=== PATIENT | male | born 1990 | race African-American/Black ===

== ENCOUNTER 2016-05-28 11:11 | Emergency (ER) | payer OTHER ==
[2016-05-28 11:40] VITALS: BP 129/76; BMI 24.0
--- NOTE | 2016-05-28 12:43 | PDOC ---
History of Present Illness - General Chief Complaint: Respiratory Stated Complaint: COUGH, MUCOUS Time Seen by Provider: 05/28/16 12:35 History Source: Care Provider - History of Present Illness Initial Comments: CHIEF COMPLAINT: 25 y/o afebrile male [facility] resident with H MR, anoxic brain injury, ADHD, aggression, s/p g-tube placement BIB facility specialist for cough, congestion and temp higher than normal. HISTORY OF PRESENT ILLNESS: Worker states the patient usually maintains a temperature of 95 degrees but today he had over 98 degrees, along with congested and productive cough of yellow/green sputum. The patient has been seen here in the past for pneumonia. Pt is nonverbal at baseline and history provided by industrial services worker and old records. Vital signs on arrival are notable for pulse of 101 with O2 sat of 94% on RA. REVIEW OF SYSTEMS: Unable to obtain from patient PHYSICAL EXAM: GENERAL: The patient is awake, alert, and fully oriented, in no acute distress. HEAD: Normal with no signs of trauma. ENT: Pupils equal, round and reactive to light, extraocular movements intact, sclera anicteric, conjunctiva clear. Neck supple. LUNGS: Rhonchi right base. Congested, moist cough. No accessory muscle use. CV: RRR, S1/S2, no MRG. Cap refill < 2 sec. ABDOMEN: Soft, non-distended, non-tender even to deep palpation, no hepatomegaly or splenomegaly, no masses. EXTREMITIES: Contracted upper extremities. NEUROLOGICAL: Non verbal SKIN: Warm, dry, normal turgor, no rashes or lesions noted. Past History - Past Medical History Allergies/Adverse Reactions: Allergies Allergy/AdvReac Type Severity Reaction Status Date / Time No Known Allergies Allergy Verified 05/28/16 11:35 Home Medications: Ambulatory Orders Baclofen 10 mg GT QID 11/29/13 Benztropine Mesylate [Cogentin -] 1 mg GT BID 11/29/13 Clonidine HCl [Catapres -] 0.3 mg GT TID 11/29/13 Senna Oral Solution - [Senokot Oral Solution -] 10 ml GT DAILY 11/29/13 Ibuprofen [Motrin -] 400 mg GT PRN PRN 06/21/14 Loperamide HCl [Loperamide] 2 mg PO Q8H PRN 06/21/14 Multivitamins [Multivit ([facility] Formulary)] 1 tab GT DAILY 06/21/14 Nystatin Oral Suspension - [Nystatin Oral Susp 594735 Units/5 ML -] 2 ml PO TID 06/21/14 Simethicone 0.6 ml GT BID 12/06/14 Esomeprazole Mag Trihydrate [Nexium] 40 mg GT DAILY 03/24/15 Ketotifen Fumarate 1 drop OP BID 03/24/15 Mometasone Furoate [Nasonex] 1 - 2 inh NS BID 03/24/15 Saccharomyces Boulardii [Florastor Kids] 250 mg GT BID 03/24/15 Pseudoephedrine HCl [Sudafed -] 5 ml GT TID 06/08/15 Guaifenesin [Robitussin -] 10 ml GT Q6H #1 bottle 01/23/16 Chlorpromazine [Thorazine -] 100 mg PO QID tablet 02/02/16 Petrolatum - White [Vaseline -] 1 applic TP DAILY applic 02/02/16 Azithromycin [Zithromax Tri-Zach (3 DAYS) -] 500 mg PO DAILY #3 tablet 03/31/16 Levofloxacin [Levaquin] 750 mg PO DAILY #5 tab 03/31/16 Loratadine 10 mg GT DAILY 03/31/16 Loratadine [Claritin -] 10 mg GT DAILY 03/31/16 Levofloxacin [Levaquin] 750 mg GT DAILY #7 tab 05/28/16 CVA: (HYPOXIC ENCEPHALOPATHY) GI Disorders: (gerd,hiatal hernia, last G-tube replacement 07/01/13) Psychiatric Problems: Yes (MR,ADHD) Suicide Attempt (Hx): No - Surgical History Abdominal Surgery: (diaphramatic hernia repair,g-tube) GI Surgery: Yes (PEG TUBE REPLACED 07/01/13) - Immunization History TDAP Vaccination: No Immunization Up to Date: Yes - Psycho/Social/Smoking Cessation Hx Anxiety: No Suicidal Ideation: No Smoking History: Never smoked Have you smoked in the past 12 months: No Number of Cigarettes Smoked Daily: 0 Information on smoking cessation initiated: No Hx Alcohol Use: No Drug/Substance Use Hx: No Substance Use Type: None Hx Substance Use Treatment: No *Physical Exam - Vital Signs Last Vital Signs Temp Pulse Resp BP Pulse Ox 101 H 20 129/76 94 L 05/28/16 11:36 05/28/16 11:36 05/28/16 11:36 05/28/16 11:36 Medical Decision Making - Medical Decision Making A/P: 26 y/o male with higher than usual temperature for him, BIB industrial services worker at [facility] for temp and congested sounding cough. Suspect pneumonia. Plan is as follows: 1. Labs 2. IV fluids 3. Duoneb 4. CXR 5. Influenza Pt being very combative and uncooperative. Will give IM ativan and attempt line and labs again. the nurses attempted 4 different access points for line and labs and could never get a line. Will do CXR and determine course of treatment from there. CXR IMPRESSION: Patchy consolidation/atelectasis in the left lower lobe region is again noted. There is some increased density in the right perihilar region suspicious for infiltrate. No definite pleural effusion is seen. Will give first dose of Levaquin via Gtube in the ER. Will discharge back to assisted living with 7 day course of levaquin. Instructed the care provider to make sure he gets his entire course of levaquin, plenty of fluids and tylenol if needed for fever. Instructed her to return to the ER with any worsening or concerning symptoms. The patient's care provider verbalizes understanding of all instructions, has no further questions and is awaiting discharge. *DC/Admit/Observation/Transfer Diagnosis at time of Disposition: Hospital acquired PNA - Discharge Dispostion Disposition: HOME Condition at time of disposition: Improved - Prescriptions Prescriptions: Levofloxacin [Levaquin] 750 mg GT DAILY #7 tab - Referrals Referrals: Corbin Espinoza MD [Primary Care Provider] - Call tomorrow - Patient Instructions Printed Discharge Instructions: DI for Pneumonia -- Adult Additional Instructions: Discharge Instructions: -Give entire 7 day course of Levaquin -GIve plenty of fluids -Give tylenol for fever if needed -Follow up with patient's doctor this week -Return to the ER with any worsening or concerning symptoms
[2016-05-28] MEDS ORDERED: ALBUTEROL SO4 2.5/IPRATROPIUM 0.5 INH SOL 3 ML VIAL.NEB. NEB ONE ×2 (12:46→14:02)
[2016-05-28] MEDS ORDERED: SODIUM CHLORIDE 1,000 ML IV STA (12:46)
[2016-05-28] MEDS ORDERED: LORAZEPAM CARPU-JECT 2 MG/ML DISP.SYRIN IM ONE (13:27)
[2016-05-28] MEDS ORDERED: LEVOFLOXACIN 750 MG TABLET PO SCH (16:30)
[2016-05-28 17:10] VITALS: PULSE 85; TEMP 98
== END 2016-05-28 16:50 | disposition home or self-care (01) ==
LOC: JER 11:11
PROC: 3E0F7GC Introduction of Other Therapeutic Substance into Respiratory Tract, Via Natural or Artificial Opening (ICD-10-PCS; principal; 2016-05-28)
PROC: 3E033NZ Introduction of Analgesics, Hypnotics, Sedatives into Peripheral Vein, Percutaneous Approach (ICD-10-PCS; 2016-05-28)
DX: J18.9 Pneumonia, unspecified organism (principal); F90.2 Attention-deficit hyperactivity disorder, combined type; F78 Other intellectual disabilities; F91.1 Conduct disorder, childhood-onset type; G93.1 Anoxic brain damage, not elsewhere classified; Z93.1 Gastrostomy status
CPT/HCPCS: 71010-TC; 71020-TC; 87804; 94640; 96374; 99283-25

== ENCOUNTER 2016-12-13 11:00 | Inpatient (IN) | payer OTHER ==
--- NOTE | 2016-12-13 12:15 | PDOC ---
History of Present Illness - General Chief Complaint: Shortness of Breath Stated Complaint: CONGESTED, SOB Time Seen by Provider: 12/13/16 11:23 History Source: Patient - History of Present Illness Timing/Duration: reports: other Associated Symptoms: reports: cough, nasal congestion, nasal drainage. denies: fever/chills, wheezing Past History - Past Medical History Allergies/Adverse Reactions: Allergies Allergy/AdvReac Type Severity Reaction Status Date / Time No Known Allergies Allergy Verified 12/13/16 11:04 Home Medications: Ambulatory Orders Baclofen 10 mg GT QID 11/29/13 Benztropine Mesylate [Cogentin -] 1 mg GT BID 11/29/13 Clonidine HCl [Catapres -] 0.3 mg GT TID 11/29/13 Senna Oral Solution - [Senokot Oral Solution -] 10 ml GT DAILY 11/29/13 Loperamide HCl [Loperamide] 2 mg PO Q8H PRN 06/21/14 Multivitamins [Multivit ([facility] Formulary)] 1 tab GT DAILY 06/21/14 Nystatin Oral Suspension - [Nystatin Oral Susp 838324 Units/5 ML -] 2 ml PO TID 06/21/14 Simethicone 0.6 ml GT BID 12/06/14 Esomeprazole Mag Trihydrate [Nexium] 20 mg GT DAILY 03/24/15 Mometasone Furoate [Nasonex] 1 - 2 inh NS BID 03/24/15 Saccharomyces Boulardii [Florastor Kids] 250 mg GT BID 03/24/15 Loratadine 10 mg GT DAILY 03/31/16 Acetaminophen [Tylenol] 650 mg PO Q4HWA PRN 12/13/16 Albuterol Sulfate [Proair Respiclick] 2 puff IH ASDIR 12/13/16 Chlorpromazine [Thorazine -] 100 mg PO BID 12/13/16 Fluticasone Propionate [Flovent Diskus] 44 mcg IH BID 12/13/16 Olopatadine HCl [Pataday] 2.5 ml OP DAILY 12/13/16 Polyethylene Glycol 3350 [Miralax (For Bowel Prep) -] 17 gm GT DAILY 12/13/16 CVA: (HYPOXIC ENCEPHALOPATHY) GI Disorders: (gerd,hiatal hernia, last G-tube replacement 07/01/13) Psychiatric Problems: Yes (MR,ADHD) Suicide Attempt (Hx): No - Surgical History Abdominal Surgery: (diaphramatic hernia repair,g-tube) GI Surgery: Yes (PEG TUBE REPLACED 07/01/13) - Immunization History TDAP Vaccination: No Immunization Up to Date: Yes - Psycho/Social/Smoking Cessation Hx Anxiety: No Suicidal Ideation: No Smoking History: Never smoked Have you smoked in the past 12 months: No Number of Cigarettes Smoked Daily: 0 Hx Alcohol Use: No Drug/Substance Use Hx: No Substance Use Type: None Hx Substance Use Treatment: No Review of Systems - Review of Systems Able to Perform ROS?: No (hx per educational institution president) Constitutional: No: Fever HEENTM: Yes: Nose Congestion Respiratory: Yes: Cough. No: Wheezing *Physical Exam - Vital Signs Last Vital Signs Temp Pulse Resp BP Pulse Ox 98.0 F 102 H 32 H 105/65 95 12/13/16 11:04 12/13/16 11:04 12/13/16 11:04 12/13/16 11:04 12/13/16 11:04 - Physical Exam General Appearance: Yes: Appropriately Dressed. No: Apparent Distress HEENT: positive: Normal Voice, Rhinorrhea. negative: Scleral Icterus (R), Scleral Icterus (L) Neck: positive: Supple Respiratory/Chest: positive: Lungs Clear, Normal Breath Sounds, Rhonchi. negative: Respiratory Distress Cardiovascular: positive: S1, S2, Tachycardia Gastrointestinal/Abdominal: positive: Soft Integumentary: positive: Dry, Warm Neurologic: positive: Alert ED Treatment Course - LABORATORY CBC & Chemistry Diagram: 12/13/16 12:24 12/13/16 12:24 - RADIOLOGY Radiology Studies Ordered: Category Date Time Status CHEST PA & LAT [RAD] Stat Radiology 12/13/16 11:37 Ordered Medical Decision Making - Medical Decision Making 12/13/16 12:12 26 yo M, h/o MR, autism, PEG tube, recurrent PNA, sent from [facility] for cough w/ rhinorrhea and congestion x 4 days. Possible sob. No fever. Pt unable to give hx See exam URI R/o PNA given hx Mild tachycardia in ED w/ RR of 32 at triage though not visibly tachypneic or sob in ED, + copious yellowish rhinorrhea w/ rhonchorus lungs -labs -CXR 12/13/16 12:14 12/13/16 12:15 12/13/16 13:47 Multilobar infiltrates on CXR. Labs wnl. Bld cx pending. Will tx and admit to Dr Gallagher as d/w . 12/13/16 13:52 12/13/16 13:59 *DC/Admit/Observation/Transfer Diagnosis at time of Disposition: Pneumonia Qualifiers: Pneumonia type: due to unspecified organism Laterality: bilateral Lung location : unspecified part of lung Qualified Code(s): J18.9 - Pneumonia, unspecified organism - Discharge Dispostion Condition at time of disposition: Fair Admit: Yes - Referrals Referrals: Ty Rodriguez MD [Primary Care Provider] -
[2016-12-13 12:32] LABS: BASOPHIL 0.4 % (0-2.0); EOSINOPHIL 2.7 % (0-4.5); MCH 28.6 pg (25.7-33.7); MCHC 33.1 g/dl (32.0-35.9); MEAN CELL VOLUME 86.5 fl (80-96); MEAN PLT VOLUME 11.6 fl (7.5-11.1); NEUTROPHILS 72.6 % (42.8-82.8); PLATELET COUNT 153 K/MM3 (134-434); RDW 13.9 % (11.9-15.9); WHITE BLOOD COUNT 9.3 K/mm3 (4.0-10.0)
[2016-12-13 12:57] LABS: ALK PHOS 72 U/L (45-117); ANION GAP 6 (8-16); BILIRUBIN,TOTAL 0.4 mg/dL (0.2-1.0); CALCIUM 9.9 mg/dL (8.5-10.1); CO2 28 mmol/L (21-32); CREATININE 0.9 mg/dL (0.7-1.3); GLUCOSE,RANDOM 104 mg/dL (74-106); SGPT/ALT 38 U/L (12-78); TOT PROT 8.6 g/dl (6.4-8.2)
[2016-12-13 12:58] LABS: SGOT/AST 28 U/L (15-37)
[2016-12-13] MEDS ORDERED: AZITHROMYCIN IVPB 500 MG in DEXTROSE 5%-WATER - 250 ML IVPB ONE (13:45)
[2016-12-13] MEDS ORDERED: CEFEPIME HCL 2 GM VIAL (RESTRICTED TO ID) IVPB ONE (13:45)
[2016-12-13] MEDS ORDERED: VANCOMYCIN 1,000 MG in DEXTROSE 5%-WATER - 250 ML IVPB ONE (13:45)
[2016-12-13] MEDS ORDERED: SODIUM CHLORIDE 1,000 ML IV STA (13:46)
--- NOTE | 2016-12-13 15:27 | PDOC ---
*Physical Exam - Vital Signs Last Vital Signs Temp Pulse Resp BP Pulse Ox 98.0 F 102 H 32 H 105/65 95 12/13/16 11:04 12/13/16 11:04 12/13/16 11:04 12/13/16 11:04 12/13/16 11:04 ED Treatment Course - LABORATORY CBC & Chemistry Diagram: 12/13/16 12:24 12/13/16 12:24 - ADDITIONAL ORDERS Additional order review: Laboratory Results 12/13/16 12:24 Sodium 136 Potassium 4.7 Chloride 102 Carbon Dioxide 28 Anion Gap 6 L BUN 14 Creatinine 0.9 Creat Clearance w eGFR > 60 Random Glucose 104 Calcium 9.9 Total Bilirubin 0.4 D AST 28 D ALT 38 D Alkaline Phosphatase 72 Total Protein 8.6 H Albumin 4.0 12/13/16 12:24 RBC 5.23 MCV 86.5 MCHC 33.1 RDW 13.9 MPV 11.6 H Neutrophils % 72.6 Lymphocytes % 12.1 D Monocytes % 12.2 H Eosinophils % 2.7 Basophils % 0.4 - Medications Given in the ED: ED Medications Discontinued Medications Generic Name Dose Route Start Last Admin Trade Name Freq PRN Reason Stop Dose Admin Lorazepam 1 mg 12/13/16 13:59 12/13/16 14:05 Ativan Injection - IM 12/13/16 14:00 1 mg ONCE ONE Administration Medical Decision Making - Medical Decision Making 12/13/16 15:26 Patient seen and examined with MASHA Huffman. Agree with history, assessment, and plan. *DC/Admit/Observation/Transfer Diagnosis at time of Disposition: Pneumonia Qualifiers: Pneumonia type: due to unspecified organism Laterality: bilateral Lung location : unspecified part of lung Qualified Code(s): J18.9 - Pneumonia, unspecified organism - Discharge Dispostion Condition at time of disposition: Fair
[2016-12-13] MEDS ORDERED: MIDAZOLAM HCL 2 MG/2 ML SINGLE DOSE VIAL IM ONE (16:19)
[2016-12-13 17:25] VITALS: BMI 26.0
[2016-12-13] MEDS ORDERED: DEXTROSE 5%-0.45% SALINE 1,000 ML IV SCH (20:15)
[2016-12-13] MEDS ORDERED: chlorproMAZINE HCL 25 MG TABLET NR SCH (22:00)
[2016-12-13] MEDS: cloNIDine HCL 0.1 MG TABLET GT SCH (23:15)
[2016-12-13] MEDS: LACTOBACILLUS ACIDOPHILUS 1 EACH TAB (FP) GT SCH (23:15)
[2016-12-13] MEDS: BENZTROPINE MESYLATE 1 MG TABLET (FP) GT SCH (23:15)
[2016-12-13] MEDS: BACLOFEN 10 MG TABLET (FP) GT SCH (23:15)
[2016-12-13] MEDS: HEPARIN NA (PORCINE) 5,000 UNITS/ML 1ML VIAL SQ SCH (23:16)
[2016-12-13] MEDS: SIMETHICONE 40 MG/0.6 ML BOTTLE GT SCH (23:16)
[2016-12-14] MEDS: cloNIDine HCL 0.1 MG TABLET GT SCH ×3 (06:26→22:30)
[2016-12-14 09:52] LABS: ALBUMIN 3.7 g/dl (3.4-5.0); ALK PHOS 72 U/L (45-117); ANION GAP 7 (8-16); BILIRUBIN,TOTAL 0.4 mg/dL (0.2-1.0); CALCIUM 9.4 mg/dL (8.5-10.1); CO2 32 mmol/L (21-32); GLUCOSE,RANDOM 89 mg/dL (74-106); SGOT/AST 36 U/L (15-37); SGPT/ALT 35 U/L (12-78); TOT PROT 8.2 g/dl (6.4-8.2)
[2016-12-14] MEDS ORDERED: PATIENT'S OWN MEDICATION (NON-FORMULARY) (Olopatadine Hcl [Pataday] 2.5 ML) OP SCH (10:00)
[2016-12-14] MEDS ORDERED: CEFTRIAXONE 1 GM in DEXTROSE 5%-WATER - 50 ML IVPB SCH (10:00)
[2016-12-14] MEDS ORDERED: PANTOPRAZOLE 20 MG TABLET (FP) PO SCH (10:00)
[2016-12-14 10:10] LABS: BASOPHIL 0.5 % (0-2.0); EOSINOPHIL 3.4 % (0-4.5); MCH 28.3 pg (25.7-33.7); MCHC 32.9 g/dl (32.0-35.9); MEAN PLT VOLUME 11.7 fl (7.5-11.1); NEUTROPHILS 58.1 % (42.8-82.8); PLATELET COUNT 181 K/MM3 (134-434); RDW 13.7 % (11.9-15.9); WHITE BLOOD COUNT 8.1 K/mm3 (4.0-10.0)
[2016-12-14] MEDS ORDERED: PT OWN MED DRAWER 7, Y5N ONE ×2 (10:58→22:18)
[2016-12-14] MEDS: LACTOBACILLUS ACIDOPHILUS 1 EACH TAB (FP) GT SCH ×2 (11:03→22:30)
[2016-12-14] MEDS: HEPARIN NA (PORCINE) 5,000 UNITS/ML 1ML VIAL SQ SCH ×2 (11:03→22:31)
[2016-12-14] MEDS: POLYETHYLENE GLYCOL 3350 255 GM BTL PO SCH (11:03)
[2016-12-14] MEDS: LORATADINE 10 MG TABLET GT SCH (11:03)
[2016-12-14] MEDS: BACLOFEN 10 MG TABLET (FP) GT SCH ×4 (11:03→22:29)
[2016-12-14] MEDS: PANTOPRAZOLE SOD 40 MG SUSPENSION PACKET GT SCH (11:03)
[2016-12-14] MEDS: SENNOSIDES 8.8 MG/5 ML BULK BOTTLE GT SCH (11:26)
--- NOTE | 2016-12-14 11:31 | HP ---
Admitting History and Physical - Admission History of Present Illness: Pt is a 26 y/o male w/ PMH significant for hypoxic encephalopathy, GERD, ADD and mental retardation. Pt is unable to give any history and info is being taken from the chart. Pt was sent from a senior care for cough. In the ER pt was found to be afebrile w/ normal WBC and Chest Xray showed multilobar pneumonia. Limitations to Obtaining History: Other - Past Medical History M[employer]ENDER: Yes: Other (Hypoxic encephalopathy Mental retardation) Gastrointestinal: Yes: GERD Psych: Yes: Other (ADD) - Past Surgical History Additional Past Surgical History: PEG placement Hernia repair - Smoking History Smoking history: Never smoked Have you smoked in the past 12 months: No Aproximately how many cigarettes per day: 0 - Alcohol/Substance Use Hx Alcohol Use: No - Social History ADL: Support Services Home Medications - Allergies Allergies/Adverse Reactions: Allergies Allergy/AdvReac Type Severity Reaction Status Date / Time No Known Allergies Allergy Verified 12/13/16 11:04 - Home Medications Home Medications: Ambulatory Orders Baclofen 10 mg GT QID 11/29/13 Benztropine Mesylate [Cogentin -] 1 mg GT BID 11/29/13 Clonidine HCl [Catapres -] 0.3 mg GT TID 11/29/13 Senna Oral Solution - [Senokot Oral Solution -] 10 ml GT DAILY 11/29/13 Loperamide HCl [Loperamide] 2 mg PO Q8H PRN 06/21/14 Multivitamins [Multivit ([facility] Formulary)] 1 tab GT DAILY 06/21/14 Nystatin Oral Suspension - [Nystatin Oral Susp 657672 Units/5 ML -] 2 ml PO TID 06/21/14 Simethicone 0.6 ml GT BID 12/06/14 Esomeprazole Mag Trihydrate [Nexium] 20 mg GT DAILY 03/24/15 Mometasone Furoate [Nasonex] 1 - 2 inh NS BID 03/24/15 Saccharomyces Boulardii [Florastor Kids] 250 mg GT BID 03/24/15 Loratadine 10 mg GT DAILY 03/31/16 Acetaminophen [Tylenol] 650 mg PO Q4HWA PRN 12/13/16 Albuterol Sulfate [Proair Respiclick] 2 puff IH ASDIR 12/13/16 Chlorpromazine [Thorazine -] 100 mg PO BID 12/13/16 Fluticasone Propionate [Flovent Diskus] 44 mcg IH BID 12/13/16 Olopatadine HCl [Pataday] 2.5 ml OP DAILY 12/13/16 Polyethylene Glycol 3350 [Miralax (For Bowel Prep) -] 17 gm GT DAILY 12/13/16 Family Disease History - Family Disease History Family History: Unable to Obtain Review of Systems Unable to obtain ROS, reason: Mental retardation/enceph Physical Examination Vital Signs: Vital Signs Temperature 98.0 F 12/13/16 11:04 Pulse Rate 87 12/13/16 16:46 Respiratory Rate 22 12/13/16 21:00 Blood Pressure 147/70 12/13/16 16:46 O2 Sat by Pulse Oximetry (%) 96 12/13/16 21:00 Constitutional: Yes: Well Nourished HENT: Yes: WNL Neck: Yes: WNL, Supple Cardiovascular: Yes: WNL, Regular Rate and Rhythm Respiratory: Yes: Rhonchi Gastrointestinal: Yes: WNL, Normal Bowel Sounds, Soft Musculoskeletal: Yes: WNL Extremities: Yes: WNL Edema: No ...Motor Strength: WNL Labs: CBC, BMP 12/14/16 09:00 12/14/16 09:00 Problem List - Problems (1) Pneumonia Assessment/Plan: Cont antibxs Pulmonary/ID consults Duoneb prn Code(s): J18.9 - PNEUMONIA, UNSPECIFIED ORGANISM Qualifiers: Pneumonia type: due to unspecified organism Laterality: bilateral Lung location: unspecified part of lung Qualified Code(s): J18.9 - Pneumonia , unspecified organism (2) Mental retardation Assessment/Plan: Pt w/ behavioral issues psych consult 1:1 Code(s): F79 - UNSPECIFIED INTELLECTUAL DISABILITIES (3) GERD (gastroesophageal reflux disease) Code(s): K21.9 - GASTRO-ESOPHAGEAL REFLUX DISEASE WITHOUT ESOPHAGITIS (4) Hypoxic encephalopathy Code(s): G93.1 - ANOXIC BRAIN DAMAGE, NOT ELSEWHERE CLASSIFIED (5) Gastrostomy tube in place Code(s): Z93.1 - GASTROSTOMY STATUS
[2016-12-14] MEDS ORDERED: LEVOFLOXACIN 500 MG TABLET (FP) PEG ONE (14:30)
[2016-12-14] MEDS: SIMETHICONE 40 MG/0.6 ML BOTTLE GT SCH ×2 (15:08→22:31)
[2016-12-14] MEDS: MULTIVIT-MINERALS 236 ML ML GT SCH (15:08)
[2016-12-14] MEDS: BENZTROPINE MESYLATE 1 MG TABLET (FP) GT SCH ×2 (15:08→22:30)
--- NOTE | 2016-12-14 15:15 | PN ---
Progress Note (short form) - Note Progress Note: PULMONARY CONSULTATION DICTATED 12/14/16 IMP PNEUMONIA ANOXIC BRAIN INJURY SEVERE MENTAL RETARDATION H/O RECURRENT PNEUMONIA S/P PEG NASAL CONGESTION PLAN ANTIBIOTICS INHALED BRONCHODILATORS PRN CULTURES F/U CHEST X-RAYS DR STREET Problem List - Problems (1) Pneumonia Code(s): J18.9 - PNEUMONIA, UNSPECIFIED ORGANISM Qualifiers: Pneumonia type: due to unspecified organism Laterality: bilateral Lung location: unspecified part of lung Qualified Code(s): J18.9 - Pneumonia , unspecified organism (2) Cough Code(s): R05 - COUGH (3) Feeding by G-tube Code(s): Z93.1 - GASTROSTOMY STATUS (4) Nasal congestion Code(s): R09.81 - NASAL CONGESTION (5) Pervasive developmental disorder Code(s): F84.9 - PERVASIVE DEVELOPMENTAL DISORDER, UNSPECIFIED
--- NOTE | 2016-12-14 16:17 | PN ---
Progress Note (short form) - Note Progress Note: ID Consult dictated Possible aspiration pneumonia Anoxic brain injury/ severe mental retardation Augmentin 875mg via PEG bid x 10d
[2016-12-14] MEDS: AMOX TR/POTASSIUM CLAVULANATE 600 MG/5 ML PEG SCH (18:14)
[2016-12-14] MEDS ORDERED: LORazepam 2 MG/ML SDV VIAL IM ONE (18:15)
[2016-12-15] MEDS: cloNIDine HCL 0.1 MG TABLET GT SCH ×3 (06:44→21:37)
--- NOTE | 2016-12-15 07:18 | CONS ---
DATE OF CONSULTATION: 12/14/2016 REFERRING PHYSICIAN: Yaquelin Gallagher MD HISTORY OF PRESENT ILLNESS: History is obtained from the chart. Patient is unable to give a history secondary to severe mental retardation. The patient is a 26-year-old black male. Past medical history of severe mental retardation, pneumonia, PEG tube, autism. Sent from [facility] secondary to cough, chest congestion for 4 days. Patient also had some shortness of breath. Patient presented to the emergency department. In the ER, he was noted to be tachycardic and tachypneic. He had a chest x-ray performed which revealed left mid lung field pneumonia. He was admitted to the floor and started on antibiotic therapy. No further history is available at this time. Again, his history is significant for severe mental retardation, autism, status post PEG, recurrent pneumonias. REVIEW OF SYSTEMS: Unable to obtain. CURRENT MEDICATIONS: Include ceftriaxone, Cogentin, heparin subcutaneous, Bacid, Mylicon, Ativan, Duo-Neb, MiraLAX, Senna, Catapres, Lioresal, and Claritin. PHYSICAL EXAMINATION:General: The patient is a well-developed, well-nourished male, awake, mildly agitated, in no acute respiratory distress. Vital Signs: He is afebrile, O2 saturation is 96% on room air, respiratory rate is 20, blood pressure 147/70. HEENT: Normocephalic, atraumatic. Neck: Supple. Heart: Regular with S1, S2. Chest: Poor inspiratory effort. Questionable rhonchi on the left. Abdomen: Soft. Bowel sounds positive. Extremities: No cyanosis or edema. LABORATORIES: BUN 16, creatinine 1.0. WBC is 8.1, hemoglobin 14.7, hematocrit 44.6, and platelet count 181,000. Chest x-ray revealed a left mid lung field infiltrate. IMPRESSION: 1. Pneumonia, left mid lung field, lower lobe. 2. Severe mental retardation. 3. Autism. 4. Status post percutaneous endoscopic gastrostomy. PLAN: Antibiotic therapy. O2 p.r.n. Inhaled bronchodilator. Obtain followup chest x-rays. Thank you. DANNY STREET M.D. [id number]
[2016-12-15] MEDS: AMOX TR/POTASSIUM CLAVULANATE 600 MG/5 ML PEG SCH ×2 (07:38→10:40)
[2016-12-15] MEDS ORDERED: PT OWN MED DRAWER 7, Y5N ONE ×2 (10:38→17:02)
[2016-12-15] MEDS: BACLOFEN 10 MG TABLET (FP) GT SCH ×4 (10:40→21:37)
[2016-12-15] MEDS: BENZTROPINE MESYLATE 1 MG TABLET (FP) GT SCH ×2 (10:40→21:43)
[2016-12-15] MEDS: LACTOBACILLUS ACIDOPHILUS 1 EACH TAB (FP) GT SCH ×2 (10:40→21:37)
[2016-12-15] MEDS: MULTIVIT-MINERALS 236 ML ML GT SCH (10:40)
[2016-12-15] MEDS: HEPARIN NA (PORCINE) 5,000 UNITS/ML 1ML VIAL SQ SCH ×2 (10:40→21:37)
[2016-12-15] MEDS: LORATADINE 10 MG TABLET GT SCH (10:41)
[2016-12-15] MEDS: SIMETHICONE 40 MG/0.6 ML BOTTLE GT SCH ×2 (10:41→21:44)
[2016-12-15] MEDS: POLYETHYLENE GLYCOL 3350 255 GM BTL PO SCH (10:41)
[2016-12-15] MEDS: SENNOSIDES 8.8 MG/5 ML BULK BOTTLE GT SCH (10:41)
[2016-12-15] MEDS: PANTOPRAZOLE SOD 40 MG SUSPENSION PACKET GT SCH (10:41)
--- NOTE | 2016-12-15 11:00 | PN ---
Progress Note (short form) - Note Progress Note: OOB to chair. Intermittent cough heard. No acute events overnight. Intake & Output 12/12/16 12/13/16 12/14/16 12/15/16 23:59 23:59 23:59 23:59 Intake Total 490 490 Balance 490 490 Weight 150 lb Last Vital Signs Temp Pulse Resp BP Pulse Ox 98 F 78 18 104/73 97 12/15/16 06:50 12/15/16 06:50 12/15/16 06:50 12/15/16 06:50 12/14/16 21:00 Active Medications Albuterol/Ipratropium (Duoneb -) 1 amp NEB QIDR PRN PRN Reason: SHORTNESS OF BREATH Amoxicillin/Clavulanate Potassium (Augmentin 600 Mg/5 Ml Oral Suspension -) 600 mg PEG BID@0800,1730 [facility] Last Admin: 12/15/16 10:40 Dose: 600 mg Baclofen (Lioresal -) 10 mg GT QID [facility] Last Admin: 12/15/16 10:40 Dose: 10 mg Benztropine Mesylate (Cogentin -) 1 mg GT BID [facility] Last Admin: 12/15/16 10:40 Dose: 1 mg Clonidine (Catapres -) 0.3 mg GT TID [facility] Last Admin: 12/15/16 06:44 Dose: 0.3 mg Heparin Sodium (Porcine) (Heparin -) 5,000 unit SQ BID [facility] Last Admin: 12/15/16 10:40 Dose: 5,000 unit Lactobacillus Acidophilus (Bacid -) 1 tab GT BID [facility] Last Admin: 12/15/16 10:40 Dose: 1 tab Loratadine (Claritin -) 10 mg GT DAILY [facility] Last Admin: 12/15/16 10:41 Dose: 10 mg Lorazepam (Ativan Injection -) 0.5 mg IM TID PRN PRN Reason: ANXIETY Last Admin: 12/15/16 08:38 Dose: 0.5 mg Non-Formulary Medication (Olopatadine Hcl [Pataday]) 2.5 ml OP DAILY [facility] Pantoprazole Sodium (Protonix Packets For Oral Suspension -) 40 mg GT DAILY [facility] Last Admin: 12/15/16 10:41 Dose: 40 mg Polyethylene Glycol (Miralax (For Bowel Prep) -) 17 gm PO DAILY [facility] Last Admin: 12/15/16 10:41 Dose: Not Given Senna (Senna Oral Solution -) 17.6 mg GT DAILY [facility] Last Admin: 12/15/16 10:41 Dose: Not Given Simethicone (Mylicon Liquid -) 40 mg GT BID [facility] Last Admin: 12/15/16 10:41 Dose: 40 mg General Appearance: Yes: NAD HEENT: positive: Rhinorrhea. negative: Scleral Icterus (R), Scleral Icterus (L) Neck: positive: Supple Respiratory/Chest: positive: Few basilar scattered rhonchi. negative: Respiratory Distress Cardiovascular: positive: S1, S2 Gastrointestinal/Abdominal: positive: Soft Integumentary: positive: Dry, Warm Neurologic: positive: Alert IMP PNEUMONIA ANOXIC BRAIN INJURY SEVERE MENTAL RETARDATION H/O RECURRENT PNEUMONIA S/P PEG NASAL CONGESTION PLAN ANTIBIOTICS INHALED BRONCHODILATORS PRN CULTURES F/U CHEST X-RAYS Problem List - Problems (1) Pneumonia Code(s): J18.9 - PNEUMONIA, UNSPECIFIED ORGANISM Qualifiers: Pneumonia type: due to unspecified organism Laterality: bilateral Lung location: unspecified part of lung Qualified Code(s): J18.9 - Pneumonia , unspecified organism (2) Cough Code(s): R05 - COUGH (3) Feeding by G-tube Code(s): Z93.1 - GASTROSTOMY STATUS (4) Nasal congestion Code(s): R09.81 - NASAL CONGESTION (5) Pervasive developmental disorder Code(s): F84.9 - PERVASIVE DEVELOPMENTAL DISORDER, UNSPECIFIED IMP PNEUMONIA ANOXIC BRAIN INJURY SEVERE MENTAL RETARDATION H/O RECURRENT PNEUMONIA S/P PEG NASAL CONGESTION PLAN ANTIBIOTICS PER ID INHALED BRONCHODILATORS PRN CULTURES D/C PLANNING DR MENEZES
[2016-12-15] MEDS: ALBUTEROL SO4 2.5/IPRATROPIUM 0.5 INH SOL 3 ML VIAL.NEB. NEB PRN ×2 (11:45→17:12)
[2016-12-15] MEDS ORDERED: LORazepam 2 MG/ML SDV VIAL IM PRN ×2 (12:34→16:51)
--- NOTE | 2016-12-15 13:11 | PN ---
Progress Note, Physician History of Present Illness: OOB in chair Agitated at times Breathing non-labored Afebrile - Current Medication List Current Medications: Active Medications Albuterol/Ipratropium (Duoneb -) 1 amp NEB QIDR PRN PRN Reason: SHORTNESS OF BREATH Last Admin: 12/15/16 11:45 Dose: 1 amp Amoxicillin/Clavulanate Potassium (Augmentin 600 Mg/5 Ml Oral Suspension -) 600 mg PEG BID@0800,1730 [facility] Last Admin: 12/15/16 10:40 Dose: 600 mg Baclofen (Lioresal -) 10 mg GT QID [facility] Last Admin: 12/15/16 10:40 Dose: 10 mg Benztropine Mesylate (Cogentin -) 1 mg GT BID [facility] Last Admin: 12/15/16 10:40 Dose: 1 mg Clonidine (Catapres -) 0.3 mg GT TID [facility] Last Admin: 12/15/16 06:44 Dose: 0.3 mg Heparin Sodium (Porcine) (Heparin -) 5,000 unit SQ BID [facility] Last Admin: 12/15/16 10:40 Dose: 5,000 unit Lactobacillus Acidophilus (Bacid -) 1 tab GT BID [facility] Last Admin: 12/15/16 10:40 Dose: 1 tab Loratadine (Claritin -) 10 mg GT DAILY [facility] Last Admin: 12/15/16 10:41 Dose: 10 mg Lorazepam (Ativan Injection -) 2 mg IM Q12H PRN PRN Reason: AGITATION Last Admin: 12/15/16 12:45 Dose: 2 mg Non-Formulary Medication (Olopatadine Hcl [Pataday]) 2.5 ml OP DAILY [facility] Pantoprazole Sodium (Protonix Packets For Oral Suspension -) 40 mg GT DAILY [facility] Last Admin: 12/15/16 10:41 Dose: 40 mg Polyethylene Glycol (Miralax (For Bowel Prep) -) 17 gm PO DAILY [facility] Last Admin: 12/15/16 10:41 Dose: Not Given Senna (Senna Oral Solution -) 17.6 mg GT DAILY [facility] Last Admin: 12/15/16 10:41 Dose: Not Given Simethicone (Mylicon Liquid -) 40 mg GT BID [facility] Last Admin: 12/15/16 10:41 Dose: 40 mg - Objective Vital Signs: Vital Signs Temperature 98 F 12/15/16 06:50 Pulse Rate 78 12/15/16 06:50 Respiratory Rate 18 12/15/16 06:50 Blood Pressure 104/73 12/15/16 06:50 O2 Sat by Pulse Oximetry (%) 97 12/14/16 21:00 Constitutional: Yes: No Distress Eyes: Yes: Conjunctiva Clear Cardiovascular: Yes: Regular Rate and Rhythm, S1, S2 Respiratory: Yes: Rhonchi Gastrointestinal: Yes: Normal Bowel Sounds, Soft. No: Tenderness Edema: No Labs: CBC, BMP 12/14/16 09:00 12/14/16 09:00 Assessment/Plan Recurrent aspiration pneumonia Hx anoxic brain injury/ mental retardation Continue augmentin via PEG
--- NOTE | 2016-12-15 13:47 | CONS ---
DATE OF CONSULTATION: DATE OF DICTATION: 12/15/2016 HISTORY OF PRESENT ILLNESS: A 26-year-old male, history of anoxic brain injury, profound mental retardation, recurrent pneumonia, evaluated for pneumonia. [facility] a 4-day history of increasing cough, pulmonary secretions and congestion. He was evaluated at [facility] where a chest x-ray showed increased markings bilaterally. He was empirically treated for suspected recurrent aspiration pneumonia. The patient's hospital course has been complicated by agitation. He pulled out his IV catheters. He does not offer any history. No reports of high-grade fever, shaking chills, labored breathing, vomiting or diarrhea. PAST MEDICAL HISTORY: Positive for anoxic brain injury, profound mental retardation, recurrent aspiration pneumonias. PAST SURGICAL HISTORY: Status post feeding gastrostomy. ALLERGIES: No known allergies. LABORATORY DATA: White count 8.1. Creatinine 1.0. Chest x-ray shows some increased markings, left lower lung field. PHYSICAL EXAMINATION: General: On exam, he is awake and alert. He is agitated. Suffers from profound mental retardation. Vital signs: Afebrile, temperature 98, blood pressure 105/65, pulse 102, respirations 22. Eyes: The sclerae are anicteric. Heart: Heart sounds S1, S2. Lungs: A few rhonchi bilaterally. Limited exam, secondary to agitation. Abdomen: Soft. Nontender. Extremities: Negative for edema. IMPRESSION: 1. Probable recurrent aspiration pneumonia. 2. Anoxic brain injury/severe mental retardation. We will give Augmentin 875 mg q.12 hours via the PEG tube to complete 10-day course and aspiration precautions. Thank you for the kind referral. CASIMIRO TINEO M.D. [id number]
[2016-12-15] MEDS: OLANZapine 10 MG TABLET PEG SCH ×2 (17:00→21:44)
--- NOTE | 2016-12-15 18:21 | PN ---
Progress Note, Physician History of Present Illness: Pt w/ agitation Pt still needing suctioning for increased mucous secretions - Current Medication List Current Medications: Active Medications Albuterol/Ipratropium (Duoneb -) 1 amp NEB QIDR PRN PRN Reason: SHORTNESS OF BREATH Last Admin: 12/15/16 17:12 Dose: 1 amp Amoxicillin/Clavulanate Potassium (Augmentin 600 Mg/5 Ml Oral Suspension -) 600 mg PEG BID@0800,1730 [facility] Last Admin: 12/15/16 10:40 Dose: 600 mg Baclofen (Lioresal -) 10 mg GT QID [facility] Last Admin: 12/15/16 17:02 Dose: 10 mg Benztropine Mesylate (Cogentin -) 1 mg GT BID [facility] Last Admin: 12/15/16 10:40 Dose: 1 mg Clonidine (Catapres -) 0.3 mg GT TID [facility] Last Admin: 12/15/16 14:24 Dose: 0.3 mg Heparin Sodium (Porcine) (Heparin -) 5,000 unit SQ BID [facility] Last Admin: 12/15/16 10:40 Dose: 5,000 unit Lactobacillus Acidophilus (Bacid -) 1 tab GT BID [facility] Last Admin: 12/15/16 10:40 Dose: 1 tab Loratadine (Claritin -) 10 mg GT DAILY [facility] Last Admin: 12/15/16 10:41 Dose: 10 mg Lorazepam (Ativan Injection -) 1 mg IM TID PRN PRN Reason: ANXIETY Non-Formulary Medication (Olopatadine Hcl [Pataday]) 2.5 ml OP DAILY [facility] Olanzapine (Zyprexa -) 10 mg PEG BID [facility] Last Admin: 12/15/16 17:00 Dose: 10 mg Pantoprazole Sodium (Protonix Packets For Oral Suspension -) 40 mg GT DAILY [facility] Last Admin: 12/15/16 10:41 Dose: 40 mg Polyethylene Glycol (Miralax (For Bowel Prep) -) 17 gm PO DAILY [facility] Last Admin: 12/15/16 10:41 Dose: Not Given Senna (Senna Oral Solution -) 17.6 mg GT DAILY [facility] Last Admin: 12/15/16 10:41 Dose: Not Given Simethicone (Mylicon Liquid -) 40 mg GT BID [facility] Last Admin: 12/15/16 10:41 Dose: 40 mg - Objective Vital Signs: Vital Signs Temperature 98 F 12/15/16 06:50 Pulse Rate 78 12/15/16 06:50 Respiratory Rate 18 12/15/16 06:50 Blood Pressure 104/73 12/15/16 06:50 O2 Sat by Pulse Oximetry (%) 97 12/14/16 21:00 Neck: Yes: WNL, Supple Cardiovascular: Yes: WNL, Regular Rate and Rhythm Respiratory: Yes: Wheezes Gastrointestinal: Yes: WNL, Normal Bowel Sounds, Soft Labs: CBC, BMP 12/14/16 09:00 12/14/16 09:00 Problem List - Problems (1) Pneumonia Assessment/Plan: Cont liquid antibxs Pt reguiring suctioning for secretions As per pulmonary/ID Duoneb prn Code(s): J18.9 - PNEUMONIA, UNSPECIFIED ORGANISM Qualifiers: Pneumonia type: due to unspecified organism Laterality: bilateral Lung location: unspecified part of lung Qualified Code(s): J18.9 - Pneumonia , unspecified organism (2) Mental retardation Assessment/Plan: Pt w/ behavioral issues psych consult noted Pt started on zyprexa Will add ativan for agitation 1:1 Code(s): F79 - UNSPECIFIED INTELLECTUAL DISABILITIES (3) GERD (gastroesophageal reflux disease) Assessment/Plan: Cont protonix Code(s): K21.9 - GASTRO-ESOPHAGEAL REFLUX DISEASE WITHOUT ESOPHAGITIS (4) Hypoxic encephalopathy Code(s): G93.1 - ANOXIC BRAIN DAMAGE, NOT ELSEWHERE CLASSIFIED (5) Gastrostomy tube in place Code(s): Z93.1 - GASTROSTOMY STATUS
[2016-12-15] MEDS: LORazepam 2 MG/ML SDV VIAL IM PRN (18:33)
[2016-12-16] MEDS: cloNIDine HCL 0.1 MG TABLET GT SCH ×3 (05:55→22:50)
[2016-12-16] MEDS: HEPARIN NA (PORCINE) 5,000 UNITS/ML 1ML VIAL SQ SCH ×2 (10:46→22:51)
[2016-12-16] MEDS: LORATADINE 10 MG TABLET GT SCH (10:46)
[2016-12-16] MEDS: BACLOFEN 10 MG TABLET (FP) GT SCH ×4 (10:47→22:50)
[2016-12-16] MEDS: BENZTROPINE MESYLATE 1 MG TABLET (FP) GT SCH ×2 (10:47→22:52)
[2016-12-16] MEDS: AMOX TR/POTASSIUM CLAVULANATE 600 MG/5 ML PEG SCH ×2 (10:47→17:27)
[2016-12-16] MEDS: LACTOBACILLUS ACIDOPHILUS 1 EACH TAB (FP) GT SCH ×2 (10:47→22:51)
[2016-12-16] MEDS: MULTIVIT-MINERALS 236 ML ML GT SCH (10:48)
[2016-12-16] MEDS: SIMETHICONE 40 MG/0.6 ML BOTTLE GT SCH ×2 (10:50→22:53)
[2016-12-16] MEDS: SENNOSIDES 8.8 MG/5 ML BULK BOTTLE GT SCH (10:51)
[2016-12-16] MEDS: OLANZapine 10 MG TABLET PEG SCH ×2 (10:52→22:54)
[2016-12-16] MEDS: PANTOPRAZOLE SOD 40 MG SUSPENSION PACKET GT SCH (10:53)
[2016-12-16] MEDS: POLYETHYLENE GLYCOL 3350 255 GM BTL PO SCH (11:40)
--- NOTE | 2016-12-16 11:49 | PN ---
Progress Note (short form) - Note Progress Note: OOB to chair in the hallway. No acute events overnight. Intake & Output 12/13/16 12/14/16 12/15/16 12/16/16 23:59 23:59 23:59 23:59 Intake Total 1989 Balance 1989 Weight 150 lb Last Vital Signs Temp Pulse Resp BP Pulse Ox 98.4 F 77 18 124/71 98 12/15/16 22:00 12/15/16 22:00 12/15/16 22:00 12/15/16 22:00 12/15/16 21:00 Active Medications Albuterol/Ipratropium (Duoneb -) 1 amp NEB QIDR PRN PRN Reason: SHORTNESS OF BREATH Last Admin: 12/15/16 17:12 Dose: 1 amp Amoxicillin/Clavulanate Potassium (Augmentin 600 Mg/5 Ml Oral Suspension -) 600 mg PEG BID@0800,1730 [facility] Last Admin: 12/16/16 10:47 Dose: 600 mg Baclofen (Lioresal -) 10 mg GT QID [facility] Last Admin: 12/16/16 10:47 Dose: 10 mg Benztropine Mesylate (Cogentin -) 1 mg GT BID [facility] Last Admin: 12/16/16 10:47 Dose: 1 mg Clonidine (Catapres -) 0.3 mg GT TID [facility] Last Admin: 12/16/16 05:55 Dose: 0.3 mg Heparin Sodium (Porcine) (Heparin -) 5,000 unit SQ BID [facility] Last Admin: 12/16/16 10:46 Dose: 5,000 unit Lactobacillus Acidophilus (Bacid -) 1 tab GT BID [facility] Last Admin: 12/16/16 10:47 Dose: 1 tab Loratadine (Claritin -) 10 mg GT DAILY [facility] Last Admin: 12/16/16 10:46 Dose: 10 mg Lorazepam (Ativan Injection -) 1 mg IM TID PRN PRN Reason: ANXIETY Last Admin: 12/15/16 18:33 Dose: 1 mg Non-Formulary Medication (Olopatadine Hcl [Pataday]) 2.5 ml OP DAILY [facility] Olanzapine (Zyprexa -) 10 mg PEG BID [facility] Last Admin: 12/16/16 10:52 Dose: 10 mg Pantoprazole Sodium (Protonix Packets For Oral Suspension -) 40 mg GT DAILY [facility] Last Admin: 12/16/16 10:53 Dose: 40 mg Polyethylene Glycol (Miralax (For Bowel Prep) -) 17 gm PO DAILY [facility] Last Admin: 12/16/16 11:40 Dose: 17 gm Senna (Senna Oral Solution -) 17.6 mg GT DAILY [facility] Last Admin: 12/16/16 10:51 Dose: 17.6 mg Simethicone (Mylicon Liquid -) 40 mg GT BID [facility] Last Admin: 12/16/16 10:50 Dose: 40 mg General Appearance: Yes: NAD HEENT: positive: Rhinorrhea. negative: Scleral Icterus (R), Scleral Icterus (L) Neck: positive: Supple Respiratory/Chest: positive: Few basilar scattered rhonchi. negative: Respiratory Distress Cardiovascular: positive: S1, S2 Gastrointestinal/Abdominal: positive: Soft Integumentary: positive: Dry, Warm Neurologic: positive: Alert IMP PNEUMONIA ANOXIC BRAIN INJURY SEVERE MENTAL RETARDATION H/O RECURRENT PNEUMONIA S/P PEG NASAL CONGESTION PLAN ANTIBIOTICS INHALED BRONCHODILATORS PRN CULTURES F/U CHEST X-RAYS Problem List - Problems (1) Pneumonia Code(s): J18.9 - PNEUMONIA, UNSPECIFIED ORGANISM Qualifiers: Pneumonia type: due to unspecified organism Laterality: bilateral Lung location: unspecified part of lung Qualified Code(s): J18.9 - Pneumonia , unspecified organism (2) Cough Code(s): R05 - COUGH (3) Feeding by G-tube Code(s): Z93.1 - GASTROSTOMY STATUS (4) Nasal congestion Code(s): R09.81 - NASAL CONGESTION (5) Pervasive developmental disorder Code(s): F84.9 - PERVASIVE DEVELOPMENTAL DISORDER, UNSPECIFIED IMP PNEUMONIA ANOXIC BRAIN INJURY SEVERE MENTAL RETARDATION H/O RECURRENT PNEUMONIA S/P PEG NASAL CONGESTION PLAN ANTIBIOTICS PER ID INHALED BRONCHODILATORS PRN D/C PLANNING DR MENEZES
--- NOTE | 2016-12-16 15:00 | CON.PSY ---
Psychiatry Consult Chief Complaint: siaplaying acute agitation. Symptoms: reports: Inability to Control Temper, Aggressivity - Previous Psychiatric Treatment Inpatient: None - Previous Substance Abuse Treatment Outpatient: None Inpatient: None - Current Medications Current Medications: Active Medications Albuterol/Ipratropium (Duoneb -) 1 amp NEB QIDR PRN PRN Reason: SHORTNESS OF BREATH Last Admin: 12/15/16 17:12 Dose: 1 amp Amoxicillin/Clavulanate Potassium (Augmentin 600 Mg/5 Ml Oral Suspension -) 600 mg PEG BID@0800,1730 [facility] Last Admin: 12/16/16 10:47 Dose: 600 mg Baclofen (Lioresal -) 10 mg GT QID [facility] Last Admin: 12/16/16 13:41 Dose: 10 mg Benztropine Mesylate (Cogentin -) 1 mg GT BID [facility] Last Admin: 12/16/16 10:47 Dose: 1 mg Clonidine (Catapres -) 0.3 mg GT TID [facility] Last Admin: 12/16/16 13:41 Dose: 0.3 mg Heparin Sodium (Porcine) (Heparin -) 5,000 unit SQ BID [facility] Last Admin: 12/16/16 10:46 Dose: 5,000 unit Lactobacillus Acidophilus (Bacid -) 1 tab GT BID [facility] Last Admin: 12/16/16 10:47 Dose: 1 tab Loratadine (Claritin -) 10 mg GT DAILY [facility] Last Admin: 12/16/16 10:46 Dose: 10 mg Lorazepam (Ativan Injection -) 1 mg IM TID PRN PRN Reason: ANXIETY Last Admin: 12/15/16 18:33 Dose: 1 mg Non-Formulary Medication (Olopatadine Hcl [Pataday]) 2.5 ml OP DAILY [facility] Olanzapine (Zyprexa -) 10 mg PEG BID [facility] Last Admin: 12/16/16 10:52 Dose: 10 mg Pantoprazole Sodium (Protonix Packets For Oral Suspension -) 40 mg GT DAILY [facility] Last Admin: 12/16/16 10:53 Dose: 40 mg Polyethylene Glycol (Miralax (For Bowel Prep) -) 17 gm PO DAILY [facility] Last Admin: 12/16/16 11:40 Dose: 17 gm Senna (Senna Oral Solution -) 17.6 mg GT DAILY [facility] Last Admin: 12/16/16 10:51 Dose: 17.6 mg Simethicone (Mylicon Liquid -) 40 mg GT BID [facility] Last Admin: 12/16/16 10:50 Dose: 40 mg - Allergies Allergies: Allergies Allergy/AdvReac Type Severity Reaction Status Date / Time No Known Allergies Allergy Verified 12/13/16 11:04 - Current Living Status Usual Living Arrangement: Assisted Living - Current Mental Status Evaluation Appearance: Disheveled Attitude: Belligerent - Affect Affect: Constrictive Appropriateness: Not Appropriate - Mood Mood: Irritable - Speech/Language Expressive: Delayed - Psychomotor Activity Psychomotor Activity: Agitated - Thought Process Thought Process: [place] - Thought Content Hallucinations: Absent Delusions: Absent - Self Perception Self Perception: Depersonalization - Cognition Attention: Diminished Memory, Immediate Recall: Impaired Memory, Remote: Impaired - Concentration Serial Sevens Intact: No Simple Calculations Intact: No - Abstraction Proverb Interpretation: Idiosyncratic Judgement: Severely Impaired - Insight Insight: Impaired - Homicidal Ideation Homicidal Ideation: No Assessment/Plan !) continue with 1:1 untill discharge. 2) Continue with [facility] Psych meds. 3) Discharge when medically stable.
[2016-12-16] MEDS: LORazepam 2 MG/ML SDV VIAL IM PRN (15:14)
[2016-12-16] MEDS ORDERED: PT OWN MED DRAWER 7, Y5N ONE ×3 (17:04→23:28)
--- NOTE | 2016-12-16 23:48 | PN ---
Progress Note, Physician History of Present Illness: Pt only required suctioning once today - Current Medication List Current Medications: Active Medications Albuterol/Ipratropium (Duoneb -) 1 amp NEB QIDR PRN PRN Reason: SHORTNESS OF BREATH Last Admin: 12/15/16 17:12 Dose: 1 amp Amoxicillin/Clavulanate Potassium (Augmentin 600 Mg/5 Ml Oral Suspension -) 600 mg PEG BID@0800,1730 [facility] Last Admin: 12/16/16 17:27 Dose: 600 mg Baclofen (Lioresal -) 10 mg GT QID [facility] Last Admin: 12/16/16 22:50 Dose: 10 mg Benztropine Mesylate (Cogentin -) 1 mg GT BID [facility] Last Admin: 12/16/16 22:52 Dose: 1 mg Clonidine (Catapres -) 0.3 mg GT TID [facility] Last Admin: 12/16/16 22:50 Dose: 0.3 mg Heparin Sodium (Porcine) (Heparin -) 5,000 unit SQ BID [facility] Last Admin: 12/16/16 22:51 Dose: 5,000 unit Lactobacillus Acidophilus (Bacid -) 1 tab GT BID [facility] Last Admin: 12/16/16 22:51 Dose: 1 tab Loratadine (Claritin -) 10 mg GT DAILY [facility] Last Admin: 12/16/16 10:46 Dose: 10 mg Lorazepam (Ativan Injection -) 1 mg IM TID PRN PRN Reason: ANXIETY Last Admin: 12/16/16 15:14 Dose: 1 mg Non-Formulary Medication (Olopatadine Hcl [Pataday]) 2.5 ml OP DAILY [facility] Olanzapine (Zyprexa -) 10 mg PEG BID [facility] Last Admin: 12/16/16 22:54 Dose: 10 mg Pantoprazole Sodium (Protonix Packets For Oral Suspension -) 40 mg GT DAILY [facility] Last Admin: 12/16/16 10:53 Dose: 40 mg Polyethylene Glycol (Miralax (For Bowel Prep) -) 17 gm PO DAILY [facility] Last Admin: 12/16/16 11:40 Dose: 17 gm Senna (Senna Oral Solution -) 17.6 mg GT DAILY [facility] Last Admin: 12/16/16 10:51 Dose: 17.6 mg Simethicone (Mylicon Liquid -) 40 mg GT BID [facility] Last Admin: 12/16/16 22:53 Dose: 40 mg - Objective Vital Signs: Vital Signs Temperature 97.8 F 12/16/16 15:30 Pulse Rate 72 12/16/16 15:30 Respiratory Rate 18 12/16/16 15:30 Blood Pressure 104/65 12/16/16 15:30 O2 Sat by Pulse Oximetry (%) 98 12/15/16 21:00 Neck: Yes: WNL, Supple Cardiovascular: Yes: WNL, Regular Rate and Rhythm Respiratory: Yes: WNL, Regular, CTA Bilaterally Gastrointestinal: Yes: WNL, Normal Bowel Sounds, Soft Labs: CBC, BMP 12/14/16 09:00 12/14/16 09:00 Problem List - Problems (1) Pneumonia Assessment/Plan: Cont liquid antibxs Duoneb prn DC planning for am Code(s): J18.9 - PNEUMONIA, UNSPECIFIED ORGANISM Qualifiers: Pneumonia type: due to unspecified organism Laterality: bilateral Lung location: unspecified part of lung Qualified Code(s): J18.9 - Pneumonia, unspecified organism (2) Mental retardation Code(s): F79 - UNSPECIFIED INTELLECTUAL DISABILITIES (3) GERD (gastroesophageal reflux disease) Code(s): K21.9 - GASTRO-ESOPHAGEAL REFLUX DISEASE WITHOUT ESOPHAGITIS (4) Hypoxic encephalopathy Code(s): G93.1 - ANOXIC BRAIN DAMAGE, NOT ELSEWHERE CLASSIFIED (5) Gastrostomy tube in place Code(s): Z93.1 - GASTROSTOMY STATUS
[2016-12-17] MEDS: cloNIDine HCL 0.1 MG TABLET GT SCH ×3 (06:27→21:01)
[2016-12-17] MEDS: LORazepam 2 MG/ML SDV VIAL IM PRN ×2 (08:29→16:03)
[2016-12-17] MEDS ORDERED: PT OWN MED DRAWER 7, Y5N ONE ×2 (09:23→18:00)
[2016-12-17] MEDS: POLYETHYLENE GLYCOL 3350 255 GM BTL PO SCH (09:26)
[2016-12-17] MEDS: LACTOBACILLUS ACIDOPHILUS 1 EACH TAB (FP) GT SCH ×2 (09:26→21:01)
[2016-12-17] MEDS: BENZTROPINE MESYLATE 1 MG TABLET (FP) GT SCH ×2 (09:26→21:01)
[2016-12-17] MEDS: OLANZapine 10 MG TABLET PEG SCH ×2 (09:26→21:01)
[2016-12-17] MEDS: BACLOFEN 10 MG TABLET (FP) GT SCH ×4 (09:26→21:01)
[2016-12-17] MEDS: LORATADINE 10 MG TABLET GT SCH (09:26)
[2016-12-17] MEDS: PANTOPRAZOLE SOD 40 MG SUSPENSION PACKET GT SCH (09:26)
[2016-12-17] MEDS: AMOX TR/POTASSIUM CLAVULANATE 600 MG/5 ML PEG SCH ×2 (09:27→18:02)
[2016-12-17] MEDS: MULTIVIT-MINERALS 236 ML ML GT SCH (09:27)
[2016-12-17] MEDS: SENNOSIDES 8.8 MG/5 ML BULK BOTTLE GT SCH (09:27)
[2016-12-17] MEDS: SIMETHICONE 40 MG/0.6 ML BOTTLE GT SCH ×2 (09:28→21:02)
--- NOTE | 2016-12-17 09:39 | PN ---
Progress Note (short form) - Note Progress Note: PULMONARY Still some oral secretions but no fevers recorded. Last Vital Signs Temp Pulse Resp BP Pulse Ox 98 F 72 18 120/72 96 12/17/16 06:00 12/17/16 06:00 12/17/16 06:00 12/17/16 06:00 12/16/16 21:00 Gen: NAD in chair Heart: RRR Lung: decreased breath sounds at the bases Abd: soft, nontender Ext: no edema CBC, BMP 12/14/16 09:00 12/14/16 09:00 Active Medications Albuterol/Ipratropium (Duoneb -) 1 amp NEB QIDR PRN PRN Reason: SHORTNESS OF BREATH Last Admin: 12/15/16 17:12 Dose: 1 amp Amoxicillin/Clavulanate Potassium (Augmentin 600 Mg/5 Ml Oral Suspension -) 600 mg PEG BID@0800,1730 [facility] Last Admin: 12/17/16 09:27 Dose: 600 mg Baclofen (Lioresal -) 10 mg GT QID [facility] Last Admin: 12/17/16 09:26 Dose: 10 mg Benztropine Mesylate (Cogentin -) 1 mg GT BID [facility] Last Admin: 12/17/16 09:26 Dose: 1 mg Clonidine (Catapres -) 0.3 mg GT TID [facility] Last Admin: 12/17/16 06:27 Dose: 0.3 mg Heparin Sodium (Porcine) (Heparin -) 5,000 unit SQ BID [facility] Last Admin: 12/16/16 22:51 Dose: 5,000 unit Lactobacillus Acidophilus (Bacid -) 1 tab GT BID [facility] Last Admin: 12/17/16 09:26 Dose: 1 tab Loratadine (Claritin -) 10 mg GT DAILY [facility] Last Admin: 12/17/16 09:26 Dose: 10 mg Lorazepam (Ativan Injection -) 1 mg IM TID PRN PRN Reason: ANXIETY Last Admin: 12/17/16 08:29 Dose: 1 mg Non-Formulary Medication (Olopatadine Hcl [Pataday]) 2.5 ml OP DAILY [facility] Olanzapine (Zyprexa -) 10 mg PEG BID [facility] Last Admin: 12/17/16 09:26 Dose: 10 mg Pantoprazole Sodium (Protonix Packets For Oral Suspension -) 40 mg GT DAILY [facility] Last Admin: 12/17/16 09:26 Dose: 40 mg Polyethylene Glycol (Miralax (For Bowel Prep) -) 17 gm PO DAILY [facility] Last Admin: 12/17/16 09:26 Dose: 17 gm Senna (Senna Oral Solution -) 17.6 mg GT DAILY [facility] Last Admin: 12/17/16 09:27 Dose: 17.6 mg Simethicone (Mylicon Liquid -) 40 mg GT BID [facility] Last Admin: 12/17/16 09:28 Dose: 40 mg A/P Pneumonia Mental Retardation s/p PEG - complete antibiotics - suctioning as needed - aspiration precautions - DVT prophylaxis - d/c planning in progress
[2016-12-17] MEDS: HEPARIN NA (PORCINE) 5,000 UNITS/ML 1ML VIAL SQ SCH ×2 (11:53→21:02)
--- NOTE | 2016-12-17 23:40 | PN ---
Progress Note, Physician History of Present Illness: Pt still required suctioning today - Current Medication List Current Medications: Active Medications Albuterol/Ipratropium (Duoneb -) 1 amp NEB QIDR PRN PRN Reason: SHORTNESS OF BREATH Last Admin: 12/15/16 17:12 Dose: 1 amp Amoxicillin/Clavulanate Potassium (Augmentin 600 Mg/5 Ml Oral Suspension -) 600 mg PEG BID@0800,1730 [facility] Last Admin: 12/17/16 18:02 Dose: 600 mg Baclofen (Lioresal -) 10 mg GT QID [facility] Last Admin: 12/17/16 21:01 Dose: 10 mg Benztropine Mesylate (Cogentin -) 1 mg GT BID [facility] Last Admin: 12/17/16 21:01 Dose: 1 mg Clonidine (Catapres -) 0.3 mg GT TID [facility] Last Admin: 12/17/16 21:01 Dose: 0.3 mg Heparin Sodium (Porcine) (Heparin -) 5,000 unit SQ BID [facility] Last Admin: 12/17/16 21:02 Dose: 5,000 unit Lactobacillus Acidophilus (Bacid -) 1 tab GT BID [facility] Last Admin: 12/17/16 21:01 Dose: 1 tab Loratadine (Claritin -) 10 mg GT DAILY [facility] Last Admin: 12/17/16 09:26 Dose: 10 mg Lorazepam (Ativan Injection -) 1 mg IM TID PRN PRN Reason: ANXIETY Last Admin: 12/17/16 16:03 Dose: 1 mg Non-Formulary Medication (Olopatadine Hcl [Pataday]) 2.5 ml OP DAILY [facility] Olanzapine (Zyprexa -) 10 mg PEG BID [facility] Last Admin: 12/17/16 21:01 Dose: 10 mg Pantoprazole Sodium (Protonix Packets For Oral Suspension -) 40 mg GT DAILY [facility] Last Admin: 12/17/16 09:26 Dose: 40 mg Polyethylene Glycol (Miralax (For Bowel Prep) -) 17 gm PO DAILY [facility] Last Admin: 12/17/16 09:26 Dose: 17 gm Senna (Senna Oral Solution -) 17.6 mg GT DAILY [facility] Last Admin: 12/17/16 09:27 Dose: 17.6 mg Simethicone (Mylicon Liquid -) 40 mg GT BID [facility] Last Admin: 12/17/16 21:02 Dose: 40 mg - Objective Vital Signs: Vital Signs Temperature 97 F L 12/17/16 17:40 Pulse Rate 97 H 12/17/16 17:40 Respiratory Rate 20 12/17/16 17:40 Blood Pressure 127/78 12/17/16 17:40 O2 Sat by Pulse Oximetry (%) 96 12/17/16 09:00 Constitutional: Yes: No Distress Neck: Yes: WNL, Supple Cardiovascular: Yes: WNL, Regular Rate and Rhythm Respiratory: Yes: WNL, Regular, CTA Bilaterally Gastrointestinal: Yes: WNL, Normal Bowel Sounds, Soft Labs: CBC, BMP 12/14/16 09:00 12/14/16 09:00 Problem List - Problems (1) Pneumonia Assessment/Plan: Cont liquid antibxs Duoneb prn Code(s): J18.9 - PNEUMONIA, UNSPECIFIED ORGANISM Qualifiers: Pneumonia type: due to unspecified organism Laterality: bilateral Lung location: unspecified part of lung Qualified Code(s): J18.9 - Pneumonia, unspecified organism (2) Mental retardation Assessment/Plan: Pt w/ behavioral issues Cont 1:1 Code(s): F79 - UNSPECIFIED INTELLECTUAL DISABILITIES (3) GERD (gastroesophageal reflux disease) Code(s): K21.9 - GASTRO-ESOPHAGEAL REFLUX DISEASE WITHOUT ESOPHAGITIS (4) Hypoxic encephalopathy Code(s): G93.1 - ANOXIC BRAIN DAMAGE, NOT ELSEWHERE CLASSIFIED (5) Gastrostomy tube in place Code(s): Z93.1 - GASTROSTOMY STATUS
[2016-12-18] MEDS: cloNIDine HCL 0.1 MG TABLET GT SCH ×3 (06:09→22:21)
[2016-12-18] MEDS ORDERED: PT OWN MED DRAWER 7, Y5N ONE ×4 (09:01→23:34)
[2016-12-18] MEDS: LORazepam 2 MG/ML SDV VIAL IM PRN ×2 (09:09→13:45)
--- NOTE | 2016-12-18 10:05 | PN ---
Progress Note (short form) - Note Progress Note: PULMONARY More agitated today. No fevers recorded. Last Vital Signs Temp Pulse Resp BP Pulse Ox 98 F 78 18 114/60 96 12/17/16 22:00 12/17/16 22:00 12/17/16 22:00 12/17/16 22:00 12/17/16 21:00 Gen: NAD in chair Heart: RRR Lung: decreased breath sounds at the bases Abd: soft, nontender Ext: no edema CBC, BMP 12/14/16 09:00 12/14/16 09:00 Active Medications Albuterol/Ipratropium (Duoneb -) 1 amp NEB QIDR PRN PRN Reason: SHORTNESS OF BREATH Last Admin: 12/15/16 17:12 Dose: 1 amp Amoxicillin/Clavulanate Potassium (Augmentin 600 Mg/5 Ml Oral Suspension -) 600 mg PEG BID@0800,1730 [facility] Last Admin: 12/17/16 18:02 Dose: 600 mg Baclofen (Lioresal -) 10 mg GT QID [facility] Last Admin: 12/17/16 21:01 Dose: 10 mg Benztropine Mesylate (Cogentin -) 1 mg GT BID [facility] Last Admin: 12/17/16 21:01 Dose: 1 mg Clonidine (Catapres -) 0.3 mg GT TID [facility] Last Admin: 12/18/16 06:09 Dose: 0.3 mg Heparin Sodium (Porcine) (Heparin -) 5,000 unit SQ BID [facility] Last Admin: 12/17/16 21:02 Dose: 5,000 unit Lactobacillus Acidophilus (Bacid -) 1 tab GT BID [facility] Last Admin: 12/17/16 21:01 Dose: 1 tab Loratadine (Claritin -) 10 mg GT DAILY [facility] Last Admin: 12/17/16 09:26 Dose: 10 mg Lorazepam (Ativan Injection -) 1 mg IM TID PRN PRN Reason: ANXIETY Last Admin: 12/18/16 09:09 Dose: 1 mg Non-Formulary Medication (Olopatadine Hcl [Pataday]) 2.5 ml OP DAILY [facility] Olanzapine (Zyprexa -) 10 mg PEG BID [facility] Last Admin: 12/17/16 21:01 Dose: 10 mg Pantoprazole Sodium (Protonix Packets For Oral Suspension -) 40 mg GT DAILY [facility] Last Admin: 12/17/16 09:26 Dose: 40 mg Polyethylene Glycol (Miralax (For Bowel Prep) -) 17 gm PO DAILY [facility] Last Admin: 12/17/16 09:26 Dose: 17 gm Senna (Senna Oral Solution -) 17.6 mg GT DAILY [facility] Last Admin: 12/17/16 09:27 Dose: 17.6 mg Simethicone (Mylicon Liquid -) 40 mg GT BID [facility] Last Admin: 12/17/16 21:02 Dose: 40 mg A/P Pneumonia Mental Retardation s/p PEG - complete antibiotics - suctioning as needed - aspiration precautions - DVT prophylaxis - d/c planning in progress
[2016-12-18] MEDS: HEPARIN NA (PORCINE) 5,000 UNITS/ML 1ML VIAL SQ SCH ×2 (10:44→22:22)
[2016-12-18] MEDS: MULTIVIT-MINERALS 236 ML ML GT SCH (10:44)
[2016-12-18] MEDS: SENNOSIDES 8.8 MG/5 ML BULK BOTTLE GT SCH (10:44)
[2016-12-18] MEDS: AMOX TR/POTASSIUM CLAVULANATE 600 MG/5 ML PEG SCH ×2 (10:45→17:51)
[2016-12-18] MEDS: LACTOBACILLUS ACIDOPHILUS 1 EACH TAB (FP) GT SCH ×2 (10:45→22:21)
[2016-12-18] MEDS: LORATADINE 10 MG TABLET GT SCH (10:49)
[2016-12-18] MEDS: OLANZapine 10 MG TABLET PEG SCH ×2 (10:49→22:24)
[2016-12-18] MEDS: POLYETHYLENE GLYCOL 3350 255 GM BTL PO SCH (10:50)
[2016-12-18] MEDS: PANTOPRAZOLE SOD 40 MG SUSPENSION PACKET GT SCH (10:50)
[2016-12-18] MEDS: BACLOFEN 10 MG TABLET (FP) GT SCH ×4 (10:50→22:22)
[2016-12-18] MEDS: BENZTROPINE MESYLATE 1 MG TABLET (FP) GT SCH ×2 (10:50→22:22)
[2016-12-18] MEDS: SIMETHICONE 40 MG/0.6 ML BOTTLE GT SCH ×2 (12:08→22:23)
[2016-12-18] MEDS ORDERED: LORazepam 2 MG/ML SDV VIAL IM PRN (19:54)
[2016-12-18] MEDS ORDERED: LORazepam 2 MG/ML SDV VIAL IM ONE (20:00)
--- NOTE | 2016-12-18 23:49 | PN ---
Progress Note, Physician History of Present Illness: No new complaints - Current Medication List Current Medications: Active Medications Amoxicillin/Clavulanate Potassium (Augmentin 600 Mg/5 Ml Oral Suspension -) 600 mg PEG BID@0800,1730 [facility] Last Admin: 12/18/16 17:51 Dose: 600 mg Baclofen (Lioresal -) 10 mg GT QID [facility] Last Admin: 12/18/16 22:22 Dose: 10 mg Benztropine Mesylate (Cogentin -) 1 mg GT BID [facility] Last Admin: 12/18/16 22:22 Dose: 1 mg Clonidine (Catapres -) 0.3 mg GT TID [facility] Last Admin: 12/18/16 22:21 Dose: 0.3 mg Heparin Sodium (Porcine) (Heparin -) 5,000 unit SQ BID [facility] Last Admin: 12/18/16 22:22 Dose: 5,000 unit Lactobacillus Acidophilus (Bacid -) 1 tab GT BID [facility] Last Admin: 12/18/16 22:21 Dose: 1 tab Loratadine (Claritin -) 10 mg GT DAILY [facility] Last Admin: 12/18/16 10:49 Dose: 10 mg Lorazepam (Ativan Injection -) 1 mg IM Q8H PRN PRN Reason: ANXIETY/AGITATION Non-Formulary Medication (Olopatadine Hcl [Pataday]) 2.5 ml OP DAILY [facility] Olanzapine (Zyprexa -) 10 mg PEG BID [facility] Last Admin: 12/18/16 22:24 Dose: 10 mg Pantoprazole Sodium (Protonix Packets For Oral Suspension -) 40 mg GT DAILY [facility] Last Admin: 12/18/16 10:50 Dose: 40 mg Polyethylene Glycol (Miralax (For Bowel Prep) -) 17 gm PO DAILY [facility] Last Admin: 12/18/16 10:50 Dose: 17 gm Senna (Senna Oral Solution -) 17.6 mg GT DAILY [facility] Last Admin: 12/18/16 10:44 Dose: 17.6 mg Simethicone (Mylicon Liquid -) 40 mg GT BID [facility] Last Admin: 12/18/16 22:23 Dose: 40 mg - Objective Vital Signs: Vital Signs Temperature 98.0 F 12/18/16 10:00 Pulse Rate 72 12/18/16 10:00 Respiratory Rate 18 12/18/16 10:00 Blood Pressure 104/60 12/18/16 10:00 O2 Sat by Pulse Oximetry (%) 96 12/18/16 09:00 HENT: Yes: WNL Neck: Yes: WNL, Supple Cardiovascular: Yes: WNL, Regular Rate and Rhythm Respiratory: Yes: WNL, Regular, CTA Bilaterally Gastrointestinal: Yes: WNL, Normal Bowel Sounds, Soft Labs: CBC, BMP 12/14/16 09:00 12/14/16 09:00 Problem List - Problems (1) Pneumonia Assessment/Plan: Cont liquid antibxs Duoneb prn Code(s): J18.9 - PNEUMONIA, UNSPECIFIED ORGANISM Qualifiers: Pneumonia type: due to unspecified organism Laterality: bilateral Lung location: unspecified part of lung Qualified Code(s): J18.9 - Pneumonia, unspecified organism (2) Mental retardation Assessment/Plan: Pt w/ behavioral issues Cont 1:1 Code(s): F79 - UNSPECIFIED INTELLECTUAL DISABILITIES (3) GERD (gastroesophageal reflux disease) Code(s): K21.9 - GASTRO-ESOPHAGEAL REFLUX DISEASE WITHOUT ESOPHAGITIS (4) Hypoxic encephalopathy Code(s): G93.1 - ANOXIC BRAIN DAMAGE, NOT ELSEWHERE CLASSIFIED (5) Gastrostomy tube in place Code(s): Z93.1 - GASTROSTOMY STATUS
[2016-12-19] MEDS: cloNIDine HCL 0.1 MG TABLET GT SCH (06:41)
[2016-12-19] MEDS ORDERED: PT OWN MED DRAWER 7, Y5N ONE ×2 (08:47→10:27)
--- NOTE | 2016-12-19 10:07 | PN ---
Progress Note (short form) - Note Progress Note: PULMONARY No coughing per aide. No fevers recorded. Last Vital Signs Temp Pulse Resp BP Pulse Ox 98 F 76 18 110/69 96 12/18/16 22:00 12/18/16 22:00 12/18/16 22:00 12/18/16 22:00 12/18/16 21:00 Gen: NAD in chair Heart: RRR Lung: decreased breath sounds at the bases Abd: soft, nontender Ext: no edema CBC, BMP 12/14/16 09:00 12/14/16 09:00 Active Medications Amoxicillin/Clavulanate Potassium (Augmentin 600 Mg/5 Ml Oral Suspension -) 600 mg PEG BID@0800,1730 [facility] Last Admin: 12/18/16 17:51 Dose: 600 mg Baclofen (Lioresal -) 10 mg GT QID [facility] Last Admin: 12/18/16 22:22 Dose: 10 mg Benztropine Mesylate (Cogentin -) 1 mg GT BID [facility] Last Admin: 12/18/16 22:22 Dose: 1 mg Clonidine (Catapres -) 0.3 mg GT TID [facility] Last Admin: 12/19/16 06:41 Dose: 0.3 mg Heparin Sodium (Porcine) (Heparin -) 5,000 unit SQ BID [facility] Last Admin: 12/18/16 22:22 Dose: 5,000 unit Lactobacillus Acidophilus (Bacid -) 1 tab GT BID [facility] Last Admin: 12/18/16 22:21 Dose: 1 tab Loratadine (Claritin -) 10 mg GT DAILY [facility] Last Admin: 12/18/16 10:49 Dose: 10 mg Lorazepam (Ativan Injection -) 1 mg IM Q8H PRN PRN Reason: ANXIETY/AGITATION Last Admin: 12/19/16 09:18 Dose: 1 mg Non-Formulary Medication (Olopatadine Hcl [Pataday]) 2.5 ml OP DAILY [facility] Olanzapine (Zyprexa -) 10 mg PEG BID [facility] Last Admin: 12/18/16 22:24 Dose: 10 mg Pantoprazole Sodium (Protonix Packets For Oral Suspension -) 40 mg GT DAILY [facility] Last Admin: 12/18/16 10:50 Dose: 40 mg Polyethylene Glycol (Miralax (For Bowel Prep) -) 17 gm PO DAILY [facility] Last Admin: 12/18/16 10:50 Dose: 17 gm Senna (Senna Oral Solution -) 17.6 mg GT DAILY [facility] Last Admin: 12/18/16 10:44 Dose: 17.6 mg Simethicone (Mylicon Liquid -) 40 mg GT BID [facility] Last Admin: 12/18/16 22:23 Dose: 40 mg A/P Pneumonia Mental Retardation s/p PEG - complete antibiotics - suctioning as needed - aspiration precautions - DVT prophylaxis - d/c planning in progress
[2016-12-19] MEDS: HEPARIN NA (PORCINE) 5,000 UNITS/ML 1ML VIAL SQ SCH (10:28)
[2016-12-19] MEDS: LACTOBACILLUS ACIDOPHILUS 1 EACH TAB (FP) GT SCH (10:28)
[2016-12-19] MEDS: PANTOPRAZOLE SOD 40 MG SUSPENSION PACKET GT SCH (10:28)
[2016-12-19] MEDS: BACLOFEN 10 MG TABLET (FP) GT SCH (10:28)
[2016-12-19] MEDS: BENZTROPINE MESYLATE 1 MG TABLET (FP) GT SCH (10:28)
[2016-12-19] MEDS: SENNOSIDES 8.8 MG/5 ML BULK BOTTLE GT SCH (10:29)
[2016-12-19] MEDS: OLANZapine 10 MG TABLET PEG SCH (10:29)
[2016-12-19] MEDS: MULTIVIT-MINERALS 236 ML ML GT SCH (10:30)
[2016-12-19] MEDS: POLYETHYLENE GLYCOL 3350 255 GM BTL PO SCH (10:31)
[2016-12-19] MEDS: AMOX TR/POTASSIUM CLAVULANATE 600 MG/5 ML PEG SCH (10:32)
[2016-12-19] MEDS: LORATADINE 10 MG TABLET GT SCH (10:49)
[2016-12-19 15:44] VITALS: BP 108/42; PULSE 82; TEMP 98.9
== END 2016-12-19 17:20 | disposition home or self-care (01) | DRG 139 ==
LOC: JER 11:00 → JERBED 13:50 → J8W 17:10 → JERBED 23:19 → J8W 23:20 → JERBED 23:29 → J8W 23:31
PROVIDERS: ADMIT Internal Medicine; ATTEND Internal Medicine
DX: J18.9 Pneumonia, unspecified organism (principal); K21.9 Gastro-esophageal reflux disease without esophagitis; Z93.1 Gastrostomy status; F72 Severe intellectual disabilities; R05 Cough; R09.81 Nasal congestion; F84.9 Pervasive developmental disorder, unspecified; G93.1 Anoxic brain damage, not elsewhere classified
CPT/HCPCS: 36415; 71020-TC; 80053; 85025; 87040; 87070; 87186; 87205; 94640; 99282-25; J0475; J1644

== ENCOUNTER 2017-01-14 11:04 | Emergency (ER) | payer OTHER ==
[2017-01-14 11:22] VITALS: BP 132/80; PULSE 80; BMI 24.7
--- NOTE | 2017-01-14 12:17 | PDOC ---
History of Present Illness - General Chief Complaint: Cold Symptoms Stated Complaint: REVISIT Time Seen by Provider: 01/14/17 11:35 History Source: Patient Exam Limitations: No Limitations - History of Present Illness Initial Comments: 01/14/17 12:12 26 yr male sent for repeat CXR seen in December for pneumonia. Pt has no complaints from [facility]. pt has chronic medical conditions, arrived with a prescription for a follow up CXR. accompanied by staff members. 01/14/17 18:28 01/14/17 19:08 Past History - Past Medical History Allergies/Adverse Reactions: Allergies Allergy/AdvReac Type Severity Reaction Status Date / Time No Known Allergies Allergy Verified 01/14/17 11:23 Home Medications: Ambulatory Orders Baclofen 10 mg GT QID 11/29/13 Benztropine Mesylate [Cogentin -] 1 mg GT BID 11/29/13 Clonidine HCl [Catapres -] 0.3 mg GT TID 11/29/13 Senna Oral Solution - [Senokot Oral Solution -] 10 ml GT DAILY 11/29/13 Loperamide HCl [Loperamide] 2 mg PO Q8H PRN 06/21/14 Multivitamins [Multivit ([facility] Formulary)] 1 tab GT DAILY 06/21/14 Nystatin Oral Suspension - [Nystatin Oral Susp 826934 Units/5 ML -] 2 ml PO TID 06/21/14 Simethicone 0.6 ml GT BID 12/06/14 Esomeprazole Mag Trihydrate [Nexium] 20 mg GT DAILY 03/24/15 Mometasone Furoate [Nasonex] 1 - 2 inh NS BID 03/24/15 Loratadine 10 mg GT DAILY 03/31/16 Acetaminophen [Tylenol] 650 mg PO Q4HWA PRN 12/13/16 Albuterol Sulfate [Proair Respiclick] 2 puff IH ASDIR 12/13/16 Chlorpromazine [Thorazine -] 100 mg PO BID@1200,2000 12/13/16 Fluticasone Propionate [Flovent Diskus] 44 mcg IH BID 12/13/16 Olopatadine HCl [Pataday] 2.5 ml OP DAILY 12/13/16 Polyethylene Glycol 3350 [Miralax 255 gm Btl -] 17 gm GT DAILY 12/13/16 Chlorpromazine 50 mg GT BID@0600,1600 12/17/16 Chlorpromazine [Thorazine -] 50 mg GT BID@0600,1600 12/17/16 Lactobacillus Acidophilus [Bacid -] 1 tab GT BID #20 tab 12/17/16 Albuterol 2.5/Ipratropium 0.5 [Duoneb -] 1 amp NEB QID PRN #30 amp 12/18/16 CVA: (HYPOXIC ENCEPHALOPATHY) GI Disorders: (gerd,hiatal hernia, last G-tube replacement 07/01/13) Psychiatric Problems: Yes (MR,ADHD) Suicide Attempt (Hx): No - Surgical History Abdominal Surgery: (diaphramatic hernia repair,g-tube) GI Surgery: Yes (PEG TUBE REPLACED 07/01/13) - Immunization History TDAP Vaccination: No Immunization Up to Date: Yes - Psycho/Social/Smoking Cessation Hx Anxiety: No Suicidal Ideation: No Smoking History: Never smoked Have you smoked in the past 12 months: No Number of Cigarettes Smoked Daily: 0 Information on smoking cessation initiated: No Hx Alcohol Use: No Drug/Substance Use Hx: No Substance Use Type: None Hx Substance Use Treatment: No Respiratory Specific PMHX - Complaint Specific PMHX Pneumonia: Yes Review of Systems - Review of Systems Able to Perform ROS?: No (severe MR) Constitutional: No: Symptoms Reported HEENTM: No: Symptoms Reported Respiratory: Yes: Cough (chronic per staff) *Physical Exam - Vital Signs Last Vital Signs Temp Pulse Resp BP Pulse Ox 80 18 132/80 100 01/14/17 11:18 01/14/17 11:18 01/14/17 11:18 01/14/17 11:18 - Physical Exam General Appearance: Yes: Nourished, Appropriately Dressed HEENT: positive: EOMI, REHAN Respiratory/Chest: positive: Rhonchi (scattered poor effort) Musculoskeletal: positive: Normal Inspection Integumentary: positive: Normal Color, Dry, Warm Neurologic: positive: Alert, Normal Response ED Treatment Course - RADIOLOGY Radiology Studies Ordered: Category Date Time Status CHEST PA & LAT [RAD] Stat Radiology 01/14/17 11:43 Completed Medical Decision Making - Medical Decision Making 01/14/17 19:09 cc: chronic cough sent for CXR from [facility] facility with staff behavior unchanged per staff stable vitals, pt is eating and drinking will get the CXR and send results with pt staff to bring with him *DC/Admit/Observation/Transfer Diagnosis at time of Disposition: History of chronic cough - Discharge Dispostion Disposition: HOME Condition at time of disposition: Good - Patient Instructions Additional Instructions: please follow up with your medical doctor with the chest xray results given to you today.
== END 2017-01-14 12:19 | disposition home or self-care (01) ==
LOC: JERFT 11:04
DX: R05 Cough (principal); F90.9 Attention-deficit hyperactivity disorder, unspecified type; F72 Severe intellectual disabilities; K21.9 Gastro-esophageal reflux disease without esophagitis; Z86.73 Personal history of transient ischemic attack (TIA), and cerebral infarction without residual deficits; Z93.1 Gastrostomy status
CPT/HCPCS: 71020-TC; 99281-25

== ENCOUNTER 2021-05-16 13:52 | Emergency (ER) | payer OTHER ==
[2021-05-16 15:20] VITALS: BP 115/53; PULSE 97; BMI 24.5
[2021-05-17 14:13] LABS: SARS-CoV-2 NAA Not Detected (Not Detected)
== END 2021-05-16 18:12 | disposition home or self-care (01) ==
LOC: JER 13:52
DX: R05.1 Acute cough (principal); R09.81 Nasal congestion
CPT/HCPCS: 71045-TC-FY; 87804; 99284-25; C9803-CS; U0003; U0005